=== PATIENT | male | born 1985 | race Two or more races ===

== ENCOUNTER 2019-09-28 00:50 | Emergency (ER) | payer SELFPAY ==
[~2019-09-28] VITALS: Ht 175.3 cm; Wt 122.5 kg
[2019-09-28 03:33] VITALS: BP 125/80
== END 2019-09-28 03:57 | disposition home or self-care (01) ==
LOC: EDSEX 00:50 → ER 00:55
DX: J11.89 Influenza due to unidentified influenza virus with other manifestations (principal); J21.9 Acute bronchiolitis, unspecified; T50.905A Adverse effect of unspecified drugs, medicaments and biological substances, initial encounter; Y92.9 Unspecified place or not applicable